=== PATIENT | female | born 1935 | race Caucasian/White ===

== ENCOUNTER 2018-10-26 17:14 | Emergency (ER) | payer MEDICARE ==
[~2018-10-26] VITALS: Ht 149.9 cm; Wt 66.2 kg
--- NOTE | 2018-10-26 17:54 | Diagnostic Imaging Report ---
Exam: left knee 3 views History: Fell off curb, laceration, pain Comparison: None. 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 No acute, displaced fracture or dislocation. Joint space is relatively well-maintained. No focal soft tissue abnormalities. Impression: No acute osseous abnormality. Signed by: Dr. Vijay Grace M.D. on 10/26/2018 5:51 PM
--- NOTE | 2018-10-26 17:55 | Diagnostic Imaging Report ---
Exam: Right knee 3 views History: Fall, laceration Comparison: None. Findings: No acute, displaced fracture or dislocation. Mild tricompartmental arthrosis. Significant prepatellar soft tissue swelling. No definite joint effusion. Impression: Prepatellar soft tissue swelling without underlying displaced fracture. Signed by: Dr. Vijay Grace M.D. on 10/26/2018 5:52 PM
[2018-10-26] MEDS ORDERED: ACETAMINOPHEN 325 MG TAB ONE (18:02)
[2018-10-26] MEDS ORDERED: ACETAMINOPHEN 325 MG TAB PO ONE (18:30)
--- NOTE | 2018-10-26 18:35 | NUR ---
KNEE IMMOBILIZER PLACED AND +DP BEFORE AND AFTER.
== END 2018-10-26 18:36 | disposition home or self-care (01) ==
LOC: FSED 17:14
DX: S81.011A Laceration without foreign body, right knee, initial encounter (principal); S80.01XA Contusion of right knee, initial encounter; W18.30XA Fall on same level, unspecified, initial encounter; Y93.01 Activity, walking, marching and hiking; Y92.488 Other paved roadways as the place of occurrence of the external cause
CPT/HCPCS: 99284